=== PATIENT | male | born 1980 | race Caucasian/White ===

== ENCOUNTER 2017-11-03 13:25 | Emergency (ER) | payer OTHER ==
[2017-11-03] MEDS ORDERED: ASPIRIN 81 MG CHEWABLE TABLET ONE (13:50)
[2017-11-03 14:00] LABS: Absolute Lymphocytes (CBC) 2.3 K/uL (0.7-4.9); Absolute Monocytes 0.5 K/uL (0.1-1.3); Absolute Neutrophil 4.9 K/uL (1.8-8.0); Basophils % 0.7 % (0-1.3); Eosinophils % 1.7 % (0-4.4); Hematocrit 48.8 % (39.6-49.0); Lymphocytes % 28.9 % (15.3-44.8); MCH 28.5 pg (27.0-35.0); MCV 85.8 fL (80-100); Monocytes % 6.8 % (3.3-12.3); RBC Red Blood Cell Count 5.69 M/uL (4.33-5.43)
[2017-11-03 14:22] LABS: ALT/SGPT 48 U/L (12-78); AST/SGOT 21 U/L (15-37); Albumin 3.8 g/dL (3.4-5.0); Alkaline Phosphatase 61 U/L (45-117); BUN Blood Urea Nitrogen 15 mg/dL (7-18); Bicarbonate 27 mmol/L (21-32); Bilirubin Direct < 0.1 mg/dL (0-0.2); Bilirubin Total 0.4 mg/dL (0.2-1.0); CKMB Creatine Kinase MB 1.9 ng/mL (0.3-3.6); Creatine Phosphokinase 203 U/L (39-308); Glucose Level 171 mg/dL (74-106); Lipase 267 U/L (73-393); NT PRO-BNP 31 pg/mL (<125); Potassium 4.2 mmol/L (3.5-5.1); Protein, Total 7.1 g/dL (6.4-8.2); Sodium Level 136 mmol/L (136-145)
[2017-11-03 15:14] LABS: Protime INR 1.08
--- NOTE | 2017-11-03 15:19 | RAD REPORT ---
EXAM DESCRIPTION: RAD - Chest Single View - 11/03/2017 1:48 pm CLINICAL HISTORY: CHEST PAIN Chest pain. COMPARISON: No comparisons FINDINGS: Portable technique limits examination quality. The lungs are grossly clear. The heart is normal in size. No displaced fractures. IMPRESSION: No acute intrathoracic process suspected.
--- NOTE | 2017-11-03 15:27 | RAD REPORT ---
EXAM DESCRIPTION: CT - Head Brain Wo Cont - 11/03/2017 3:18 pm CLINICAL HISTORY: CONFUSED Drowsiness COMPARISON: No comparisons TECHNIQUE: All CT scans are performed using dose optimization technique as appropriate and may inclu de automated exposure control or mA/KV adjustment according to patient size. FINDINGS: No intracranial hemorrhage, hydrocephalus or extra-axial fluid collection.No areas of brai n edema or evidence of midline shift. The paranasal sinuses and mastoids are clear. The calvarium is intact. IMPRESSION: No acute intracranial abnormality.
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
--- NOTE | 2017-11-03 17:00 | EKG ---
Test Date: 2017-11-03 Test Time: 13:32:18 Thermocouple Tester: MARIA R MEASUREMENT RESULTS: Intervals: Rate: 74 WA: 158 QRSD: 82 QT: 374 QTc: 415 [place]: P: 35 WA: 158 QRS: 81 T: 31 INTERPRETIVE STATEMENTS: Normal sinus rhythm Low voltage QRS Borderline ECG No previous ECG available for comparison Electronically Signed On 11-03-17 17:00:26 CDT by Rojas Lloyd
[2017-11-03 17:21] VITALS: BP 138/82; O2SAT 99
--- NOTE | 2017-11-05 13:26 | HM ---
Indications : Palpitations Diary Notations : Yes Referring MD : Yon Seth MD Medications: Metformin, Lisinporil, Vittoza, Adderall Reading MD : Matt Mills MD Summary Report Test Date : 11/03/2017 4:47:10 PM Start Time : 4:47:10 PM Total Beats : [id number] Hours Analyzed : 23:25:50 Unknown Beats : 0 Scan Date : 11/05/2017 9:35:31 AM Artifact : 0:42:06 Other Beats : 0 Percent AFIB : 0.00% Rate Dependent Events Heart Rates Min : 57 BPM at 6:45:00 AM-2 Bradycardia Runs: 2 Pauses : 0 Max : 127 BPM at 4:13:00 PM-2 Longest : 4 beats at 5:12:34 AM-2 Longest : 0.0 secs Avg : 84 BPM Min rate : 47 BPM at 5:12:34 AM-2 at Ventricular Events Supraventricular Events Total Beats : 1 Couplets : 0 Total Beats : 5 Couplets : 1 Triplets : 0 Bigeminy Runs : 0 VTach Runs : 0 SVTach Runs : 0 Longest : 0 beats at Longest : 0 beats at Max Rate ; 0 BPM Max Rate : 0 BPM at Impressions and Findings Sinus rhythm with rare premature atrial complexes and premature ventricular complexes. No ventricular tachycardia or supraventricular tachycardia. No pauses. No ischemia.
== END 2017-11-03 17:14 | disposition home or self-care (01) ==
LOC: ER 13:25
DX: R00.2 Palpitations (principal); R53.1 Weakness; I10 Essential (primary) hypertension; E11.9 Type 2 diabetes mellitus without complications; Z79.4 Long term (current) use of insulin
CPT/HCPCS: 36415; 70450; 71045; 80048; 80076; 82550; 82553; 83690; 83735; 83880; 84443; 84484; 85025; 85610; 85730; 93005; 93225; 93226; 99285

== ENCOUNTER 2019-11-06 07:21 | Emergency (ER) | payer OTHER ==
--- OUTSIDE RECORDS SUMMARY | 2019-11-06 07:23 | XMS REPORT | Continuity of Care Document ---
:1980 Author Organization [facility] t Address [address] [place] [address] Dr. Loredo[address] [place] [address] Care Team Providers Name Role Phone Lyle SHIPLEY, T Attending Clinician Doctor Unassigned, Name Attending Clinician Unavailable Problems This patient has no known problems. Allergies, Adverse Reactions, Alerts This patient has no known allergies or adverse reactions. Medications This patient has no known medications. Procedures This patient has no known procedures. Encounters Start End Encounter Admission Attending Care Care Encounter Source Date/Time Date/Time Type Type Clinicians Facility Department ID 2019-07-14 2019-07-14 [facility] [place] [id number] 09:16:54 09:31:54 ne Visit [facility] [place] [id number] [place] [id number] [facility] [id number] [address] 2018-11-09 2018-11-09 Orders Doctor CATY [id number] 00:00:00 00:00:00 Only UnassignedMELVIN [id number] [place] [facility] [id number] Results This patient has no known results.
[2019-11-06] MEDS ORDERED: ONDANSETRON 4 MG/2 ML VIAL ONE (08:27)
[2019-11-06] MEDS ORDERED: MORPHINE 4 MG/ML SYR ONE ×2 (08:27→09:41)
[2019-11-06] MEDS ORDERED: KETOROLAC 30 MG/ML INJ ONE (08:28)
[2019-11-06] MEDS ORDERED: NA CHLORIDE 0.9% 1,000 ML ONE (08:28)
[2019-11-06 08:36] LABS: Basophils % 0.4 % (0-1.3); Lymphocytes % 17.7 % (15.3-44.8); MPV 9.2 fL (7.6-11.3); RBC Red Blood Cell Count 5.47 M/uL (4.33-5.43)
[2019-11-06 08:56] LABS: Albumin 3.4 g/dL (3.4-5.0); Bilirubin Total 0.4 mg/dL (0.2-1.0); Potassium 4.3 mmol/L (3.5-5.1); Protein, Total 6.7 g/dL (6.4-8.2)
--- NOTE | 2019-11-06 09:05 | EDPHYS ---
Physician Documentation [facility] Name: Serafin Cohn III Age: 39 yrs Sex: Male : 1980 Arrival Date: 11/06/2019 Time: 07:23 Bed 20 Private MD: Payam Brown B ED Physician Trevon Lyon HPI: 11/05 08:10 This 39 yrs old Male presents to ER via Wheelchair with complaints of Post tess Surgical Pain, Ankle Pain. Historical: - Allergies: 07:45 No Known Allergies; aa5 - PMHx: 07:45 Diabetes - NIDDM; Hypertension; aa5 - PSHx: 07:45 left ankle; right shoulder; aa5 - Immunization history:: Adult Immunizations unknown. - Social history:: Smoking status: Patient/guardian denies using tobacco, Stopped _ months ago 6. ROS: 08:16 Constitutional: Negative for fever, chills, and weight loss, Eyes: Negative for injury, tess pain, redness, and discharge, ENT: Negative for injury, pain, and discharge, Neck: Negative for injury, pain, and swelling, Cardiovascular: Negative for chest pain, palpitations, and edema, Respiratory: Negative for shortness of breath, cough, wheezing, and pleuritic chest pain, Abdomen/GI: Negative for abdominal pain, nausea, vomiting, diarrhea, and constipation, Back: Negative for injury and pain, : Negative for injury, bleeding, discharge, and swelling, Skin: Negative for injury, rash, and discoloration, Neuro: Negative for headache, weakness, numbness, tingling, and seizure, Psych: Negative for depression, anxiety, suicide ideation, homicidal ideation, and hallucinations, Allergy/Immunology: Negative for hives, rash, and allergies, Endocrine: Negative for neck swelling, polydipsia, polyuria, polyphagia, and marked weight changes, Hematologic/Lymphatic: Negative for swollen nodes, abnormal bleeding, and unusual bruising. 08:16 MS/extremity: Positive for decreased range of motion, pain, tenderness, of the left lateral ankle, left medial ankle and anterior aspect of left ankle. Exam: 08:16 Constitutional: This is a well developed, well nourished patient who is awake, alert, tess and in no acute distress. Head/Face: Normocephalic, atraumatic. Eyes: Pupils equal round and reactive to light, extra-ocular motions intact. Lids and lashes normal. Conjunctiva and sclera are non-icteric and not injected. Cornea within normal limits. Periorbital areas with no swelling, redness, or edema. ENT: Nares patent. No nasal discharge, no septal abnormalities noted. Tympanic membranes are normal and external auditory canals are clear. Oropharynx with no redness, swelling, or masses, exudates, or evidence of obstruction, uvula midline. Mucous membranes moist. Neck: Trachea midline, no thyromegaly or masses palpated, and no cervical lymphadenopathy. Supple, full range of motion without nuchal rigidity, or vertebral point tenderness. No Meningismus. Chest/axilla: Normal chest wall appearance and motion. Nontender with no deformity. No lesions are appreciated. Cardiovascular: Regular rate and rhythm with a normal S1 and S2. No gallops, murmurs, or rubs. Normal PMI, no JVD. No pulse deficits. Respiratory: Lungs have equal breath sounds bilaterally, clear to auscultation and percussion. No rales, rhonchi or wheezes noted. No increased work of breathing, no retractions or nasal flaring. Abdomen/GI: Soft, non-tender, with normal bowel sounds. No distension or tympany. No guarding or rebound. No evidence of tenderness throughout. Back: No spinal tenderness. No costovertebral tenderness. Full range of motion. Skin: Warm, dry with normal turgor. Normal color with no rashes, no lesions, and no evidence of cellulitis. Neuro: Awake and alert, GCS 15, oriented to person, place, time, and situation. Cranial nerves II-XII grossly intact. Motor strength 5/5 in all extremities. Sensory grossly intact. Cerebellar exam normal. Normal gait. Psych: Awake, alert, with orientation to person, place and time. Behavior, mood, and affect are within normal limits. 08:16 Musculoskeletal/extremity: Circulation is intact in all extremities. Sensation intact. Compartment Syndrome exam of affected extremity: is normal. Joints: effusion, pain at rest, painful range of motion, Weight bearing: is unable to bear weight, DVT Exam: negative Homans' sign noted on exam, no appreciated bluish discoloration, no erythema, no increased warmth, pain, swelling, tenderness. Vital Signs: 07:41 BP 150 / 94; Pulse 80; Resp 18 S; Temp 98.2(O); Pulse Ox 100% on R/A; Weight 147.42 kg aa5 (R); Height 6 ft. 0 in. (182.88 cm) (R); Pain 10/10; 08:27 BP 145 / 88; Pulse 82; Resp 18 S; Pulse Ox 99% on R/A; aa5 09:25 BP 149 / 90; Pulse 80; Resp 16 S; Pulse Ox 99% on R/A; aa5 10:45 BP 138 / 85; Pulse 79; Resp 18 S; Temp 98.0(TE); Pulse Ox 98% on R/A; aa5 07:41 Body Mass Index 44.08 (147.42 kg, 182.88 cm) aa5 MDM: 07:44 Patient medically screened. [facility] 08:18 Data reviewed: vital signs, nurses notes, lab test result(s), radiologic studies, plain tess films. 08:32 Differential diagnosis: foreign body, arthritis, cellulitis. Data interpreted: Cardiac tess monitor: rate is 80 beats/min, rhythm is regular, Pulse oximetry: on room air is 100 %. Test interpretation: by ED physician or midlevel provider: plain radiologic studies. 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 ED course: REST, ELEVATE, FOLLOW UP, RETURN IF WORSE. 09:03 ED course: patient much improved, will resplint , RICE, FOLLOW UP , PT HAS PAIN MEDS, tess RETURN IF WORSENS. 11/05 08:07 Order name: CBC with Diff; Complete Time: 09:03 [facility] 11/05 08:07 Order name: Comprehensive Metabolic Panel; Complete Time: 09:03 [facility] 11/05 08:07 Order name: Ankle Left 3 View XRAY [facility] 11/05 08:10 Order name: Ice pack; Complete Time: 08:15 [facility] 11/05 08:10 Order name: Splint - Ankle: Posterior: WELL PADDED; Complete Time: 10:10 tess Administered Medications: 08:25 Drug: NS 0.9% 1000 ml Route: IV; Rate: 1 bolus; Site: right antecubital; aa5 10:40 Follow up: IV Status: Completed infusion; IV Intake: 1000ml aa5 08:25 Drug: Zofran (Ondansetron) 4 mg Route: IVP; Site: right antecubital; aa5 08:30 Follow up: Response: No adverse reaction aa5 08:25 Drug: TORadol 30 mg Route: IVP; Site: right antecubital; aa5 08:30 Follow up: Response: No adverse reaction aa5 08:27 Drug: morphine 4 mg Route: IVP; Site: right antecubital; aa5 08:30 Follow up: Response: No adverse reaction aa5 09:35 Drug: morphine 4 mg Route: IVP; Site: right antecubital; aa5 09:40 Follow up: Response: No adverse reaction aa5 10:45 Drug: [place] 10 mg-325 mg 1 tabs Route: PO; aa5 10:50 Follow up: Response: Medication administered at discharge. aa5 Disposition: 11/06/19 09:05 Discharged to Home. Impression: Pain in left ankle and joints of left foot - POST OP. - Condition is Stable. - Discharge Instructions: Joint Pain, Cryotherapy, [id number]-fw-[id number], Ankle Pain, Cryotherapy, Joint Pain, [id number]-[id number]. - Prescriptions for Motrin IB 200 mg Oral Tablet - take 2 tablet by ORAL route every 6 hours As needed as needed with food; 30 tablet. - Medication Reconciliation Form, Thank You Letter, Antibiotic Education, Prescription Opioid Use form. - Follow up: Private Physician; When: 2 - 3 days; Reason: Recheck today's complaints, Continuance of care, Re-evaluation by your physician. - Problem is new. - Symptoms have improved. Signatures: Dispatcher [employer] [facility] Trevon Lyon MD MD cha Calderon, Audri, RN RN aa5 Corrections: (The following items were deleted from the chart) 11:07 09:05 11/06/2019 09:05 Discharged to Home. Impression: Pain in left ankle and joints of aa5 left foot - POST OP. Condition is Stable. Discharge Instructions: Joint Pain, Cryotherapy, Waxd-mu-Hnzj, Ankle Pain, Cryotherapy, Joint Pain, [id number]-[id number]. Forms are Medication Reconciliation Form, Thank You Letter, Antibiotic Education, Prescription Opioid Use. Follow up: Private Physician; When: 2 - 3 days; Reason: Recheck today's complaints, Continuance of care, Re-evaluation by your physician. Problem is new. Symptoms have improved. tess
--- NOTE | 2019-11-06 09:05 | ER ---
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 Pt states he took oxycodone at 0100 today. 07:41 Coronavirus screen: Client denies travel out of the [place] in the last 14 days. At this aa5 time, the client does not indicate any symptoms associated with coronavirus-19. Ebola Screen: Patient negative for fever greater than or equal to 101.5 degrees Fahrenheit, and additional compatible Ebola Virus Disease symptoms. Initial Sepsis Screen: Does the patient meet any 2 criteria? No. Patient's initial sepsis screen is negative. Does the patient have a suspected source of infection? No. Patient's initial sepsis screen is negative. Risk Assessment: Do you want to hurt yourself or someone else? Patient reports no desire to harm self or others. Onset of symptoms was October 2019. 07:41 Method Of Arrival: Wheelchair aa 07:41 Acuity: ARLETTE 3 aa5 Historical: - Allergies: 07:45 No Known Allergies; aa5 - PMHx: 07:45 Diabetes - NIDDM; Hypertension; aa5 - PSHx: 07:45 left ankle; right shoulder; aa5 - Immunization history:: Adult Immunizations unknown. - Social history:: Smoking status: Patient/guardian denies using tobacco, Stopped _ months ago 6. Screenin:30 Abuse screen: Denies threats or abuse. Nutritional screening: No deficits noted. aa5 Tuberculosis screening: No symptoms or risk factors identified. Fall Risk Secondary diagnosis (15 points) recent left ankle surgery . IV access (20 points). Ambulatory Aid- Total Zimmer Fall Scale indicates Low Risk Score (25-44 pts). Fall prevention measures have been instituted. Side Rails Up X 2 Placed close to Nursing Station. Assessment: 07:44 General: Appears uncomfortable, Behavior is calm, cooperative. Pain: Complains of pain aa5 in left ankle Pain currently is 10 out of 10 on a pain scale. Quality of pain is described as sharp, throbbing, Is continuous, Aggravated by increased activity. Neuro: Level of Consciousness is awake, alert, obeys commands, Oriented to person, place, time, situation. Cardiovascular: Patient's skin is warm and dry. Pulses are 3+ in left dorsalis pedis artery. Respiratory: Airway is patent Respiratory effort is even, unlabored, Respiratory pattern is regular, symmetrical. GI: No signs and/or symptoms were reported involving the gastrointestinal system. : No signs and/or symptoms were reported regarding the genitourinary system. EENT: No signs and/or symptoms were reported regarding the EENT system. Derm: Skin is pink, warm \\T\\ dry. Musculoskeletal: Circulation, motion, and sensation intact. Swelling present in left ankle. 08:27 Reassessment: Patient is alert, oriented x 3, equal unlabored respirations, skin aa5 warm/dry/pink. 08:30 Reassessment: x-ray at bedside . aa5 08:30 Reassessment: Patient is alert, oriented x 3, equal unlabored respirations, skin aa5 warm/dry/pink. Patient states feeling better. 09:22 Reassessment: Pt requesting pain medication, MD was notified. . aa5 09:35 Reassessment: Patient is alert, oriented x 3, equal unlabored respirations, skin aa5 warm/dry/pink. 09:45 Reassessment: Patient is alert, oriented x 3, equal unlabored respirations, skin aa5 warm/dry/pink. Patient states symptoms have improved. 09:45 General: Appears comfortable. aa5 10:40 Reassessment: Patient is alert, oriented x 3, equal unlabored respirations, skin aa5 warm/dry/pink. Pt requesting pain medication before d/c home, was notified. . 10:55 Reassessment: Patient is alert, oriented x 3, equal unlabored respirations, skin aa5 warm/dry/pink. Vital Signs: 07:41 BP 150 / 94; Pulse 80; Resp 18 S; Temp 98.2(O); Pulse Ox 100% on R/A; Weight 147.42 kg aa5 (R); Height 6 ft. 0 in. (182.88 cm) (R); Pain 10/10; 08:27 BP 145 / 88; Pulse 82; Resp 18 S; Pulse Ox 99% on R/A; aa5 09:25 BP 149 / 90; Pulse 80; Resp 16 S; Pulse Ox 99% on R/A; aa5 10:45 BP 138 / 85; Pulse 79; Resp 18 S; Temp 98.0(TE); Pulse Ox 98% on R/A; aa5 07:41 Body Mass Index 44.08 (147.42 kg, 182.88 cm) aa5 ED Course: 07:23 Patient arrived in ED. ag5 07:23 Linnea Jackson DO is Private Physician. ag5 07:23 Payam Brown MD is Private Physician. ag5 07:24 Trevon Lyon MD is Attending Physician. [facility] [place] 07:41 Nguyen Epps, KESHA is Primary Nurse. aa5 07:41 Arm band placed on. aa5 07:41 Patient has correct armband on for positive identification. Bed in low position. Call aa5 light in reach. Side rails up X2. Pulse ox on. NIBP on. 08:05 Triage completed. aa5 08:23 Initial lab(s) drawn, by me, sent to lab. Inserted saline lock: 20 gauge in right aa5 antecubital area, using aseptic technique. Blood collected. 08:47 Ankle Left 3 View XRAY In Process Unspecified. EDMS 10:13 Orthoglass splint: Posterior short lleg splint applied on left leg. Pedal pulses jb1 present and within normal limits before and after application of splint. Capillary refill was one second before and after application fo splint. Patient tolerated well. 10:45 No provider procedures requiring assistance completed. IV discontinued, intact, aa5 bleeding controlled, No redness/swelling at site. Pressure dressing applied. Administered Medications: 08:25 Drug: NS 0.9% 1000 ml Route: IV; Rate: 1 bolus; Site: right antecubital; aa5 10:40 Follow up: IV Status: Completed infusion; IV Intake: 1000ml aa5 08:25 Drug: Zofran (Ondansetron) 4 mg Route: IVP; Site: right antecubital; aa5 08:30 Follow up: Response: No adverse reaction aa5 08:25 Drug: TORadol 30 mg Route: IVP; Site: right antecubital; aa5 08:30 Follow up: Response: No adverse reaction aa5 08:27 Drug: morphine 4 mg Route: IVP; Site: right antecubital; aa5 08:30 Follow up: Response: No adverse reaction aa5 09:35 Drug: morphine 4 mg Route: IVP; Site: right antecubital; aa5 09:40 Follow up: Response: No adverse reaction aa5 10:45 Drug: [place] 10 mg-325 mg 1 tabs Route: PO; aa5 10:50 Follow up: Response: Medication administered at discharge. aa5 Intake: 10:40 IV: 1000ml; Total: 1000ml. aa5 Outcome: 09:05 Discharge ordered by . tess 10:55 Patient left the ED. aa5 10:55 Discharged to home via wheelchair, with significant other. aa5 10:55 Condition: stable 10:55 Discharge instructions given to patient, Instructed on discharge instructions, follow aa5 up and referral plans. medication usage, Demonstrated understanding of instructions, follow-up care, medications, Prescriptions given X 1. Signatures: Dispatcher [employer] EDMS Serafin Blakely [email or web address] Trevon Lyon MD MD cha Calderon, Audri, RN RN [email or web address] Manfred Stokes 5 Corrections: (The following items were deleted from the chart) 08:07 07:41 Acuity: ARLETTE 4 aa5 aa5 11:08 11:07 Patient left the ED. aa5 aa5
--- NOTE | 2019-11-06 10:41 | RAD REPORT ---
EXAM DESCRIPTION: RAD - Ankle Left 3 View -11/06/2019 8:47 am CLINICAL HISTORY: Left ankle pain FINDINGS: No fracture or dislocation is seen. Moderate osteoarthritis. Soft tissue swelling
[2019-11-06] MEDS ORDERED: HYDROCODONE/APAP 10/325 TAB ONE (10:58)
== END 2019-11-06 11:07 | disposition home or self-care (01) ==
LOC: ER 07:21
DX: M25.572 Pain in left ankle and joints of left foot (principal); Z98.890 Other specified postprocedural states; Z87.891 Personal history of nicotine dependence
CPT/HCPCS: 96361; 85025; 36415; 80053; 73610; 96375; 96374; 99284; J7030; J2405

== ENCOUNTER 2023-07-02 21:59 | Emergency (ER) | payer BC, OTHER ==
--- OUTSIDE RECORDS SUMMARY | 2023-07-02 22:03 | XMS REPORT | Continuity of Care Document ---
Author Name Unknown Address [address] [facility] [address] [place] [address] [facility] thconnect Address [address] [facility] [address] [place] [address] Care Team Providers Care Health Professor Name Role Phone Betsy JacksonShanthiWyatt Primary Care Physician [phone] Randy Perales Attending Clinician Unavailable Tyler Borjsa Attending Clinician Unavailable Galen Alvarenga MD Attending Clinician [phone] Samira REBOLLEDO, Kiki Attending Clinician Unavailable DARLIN LAMA Attending Clinician Unavailable Only, Ang Db Test Attending Clinician UnavailDarlin Montiel Attending Clinician [phone] Osmin REBOLLEDO, Jud Attending Clinician Unavailable Moe Peterson MD Attending Clinician [phone] MOE PETERSON Attending Clinician Unavailable GALEN ALVARENGA Attending Clinician GALEN Baird Attending Clinician Wilfredo ledesma Doctor Unassigned, Intercourse Attending Clinician U Tyler Breen Admitting Clinician Unavailable Payers Payer Name Policy Type Policy Number Effective Date Expirati on Date Source [facility] 6 [id number] [facility] 6 [id number] 2020 00:00:00 [facility] A[employer] TRS CARE [id number] 2014 00:00:00 Problems Condition Name Condition Details Condition Category Status Onset Date Resolution Date Last Treatment Date Treating Clinician Comments Source No known active problems No known active problems Disease [facility] [id number] S/P gastric sleeve procedure Problem [facility] [id number] Body mass index [BMI] 33.0-33.9, adult Problem [facility] [id number] Other obesity due to excess calories Problem [facility] [id number] Type 2 diabetes mellitus with hyperglyce aaron, without long-term current use of insulin Problem [facility] [id number] Attention deficit hyperactiv ity disorder (ADHD), predominan tly inattentiv e type Problem [facility] [id number] Morbid (severe) obesity due to excess calories Problem [facility] [id number] Obstructiv e sleep apnea of adult Problem [facility] [id number] Body mass index [BMI]40.0- 44.9, adult Problem [facility] [id number] Ankle arthritis Problem [facility] [id number] HTN (hypertens ion), benign Problem [facility] [id number] Psoriasis Problem [facility] [id number] Secondary osteoarthr itis, right ankle and foot Problem [facility] Allergies, Adverse Reactions, Alerts Allergy Name Allergy Type Status Severity Reaction(s) Onset Date Inactive Date Treating Clinician Comments Source No Known Allergie s DA Active U 07-18 00:00: 00 [facility] Social History Social Habit Start Date Stop Date Quantity Comments Source History of Tobacco Use [facility] Sex Assigned At [facility] Alcohol intake 2020-06-07 00:00:00 2020-06-07 00:00:00 Current non-drinker of alcohol (finding) [facility] Tobacco use and exposure 2017-09-24 00:00:00 2017-09-24 00:00:00 Current user [facility] Smoking Status Start Date Stop Date Source Former Smoker 2023-05-09 00:00:00 2023-05-09 00:00:00 [facility] Never smoker [facility] Medications Ordered Medication Name Filled Medication Name Start Date Stop Date Current Medication? Ordering Clinician Indication Dosage Frequency Signature (SIG) Comments Components Source Adderall 20 MG Adderall 20 MG 2023-0 3-28 00:00: 00 No 1{table t} BID Adderall 20 MG Adderall 20 MG Adderall 20 MG 2023-0 2-29 00:00: 00 No 1{table t} BID Adderall 20 MG Adderall 20 MG Adderall 20 MG 4-0 2-03 00:00: 00 No 1{table t} BID Adderall 20 MG Adderall 20 MG Adderall 20 MG 2023-0 2-03 00:00: 00 No 1{table t} BID Adderall 20 MG Adderall 20 MG Adderall 20 MG 4-0 2-03 00:00: 00 No 1{table t} BID Adderall 20 MG Adderall 20 MG Adderall 20 MG 4-0 2-03 00:00: 00 No 1{table t} BID Adderall 20 MG Adderall 20 MG Adderall 20 MG 4-0 2-02 00:00: 00 No 1{table t} BID Adderall 20 MG Adderall 20 MG Adderall 20 MG 4-0 1-04 00:00: 00 No 1{table t} BID Adderall 20 MG Adderall 20 MG Adderall 20 MG 4-0 1-04 00:00: 00 No 1{table t} BID Adderall 20 MG Adderall 20 MG Adderall 20 MG 03-20 00:00: 00 No 1{table t} BID Adderall 20 MG Adderall 20 MG Adderall 20 MG 2022-03 00:00: 00 No 1{table t} BID Adderall 20 MG Adderall 20 MG Adderall 20 MG 2022-03 00:00: 00 No 1{table t} BID Adderall 20 MG Adderall 20 MG Adderall 20 MG 2022-03 00:00: 00 No 1{table t} BID Adderall 20 MG Adderall 20 MG Adderall 20 MG 2022-03 00:00: 00 No 1{table t} BID Adderall 20 MG Adderall 20 MG Adderall 20 MG 2022-03 00:00: 00 No 1{table t} BID Adderall 20 MG Adderall 20 MG Adderall 20 MG 2022-03 00:00: 00 No 1{table t} BID Adderall 20 MG Adderall 20 MG Adderall 20 MG 2022-03 00:00: 00 No 1{table t} BID Adderall 20 MG Adderall 20 MG Adderall 20 MG 2022-03 00:00: 00 No 1{table t} BID Adderall 20 MG Adderall 20 MG Adderall 20 MG 2022-03 00:00: 00 No 1{table t} BID Adderall 20 MG Adderall 20 MG Adderall 20 MG 2022-03 00:00: 00 No 1{table t} BID Adderall 20 MG Adderall 20 MG Adderall 20 MG 2022-03 00:00: 00 No 1{table t} BID Adderall 20 MG Adderall 20 MG Adderall 20 MG 2022-03 00:00: 00 No 1{table t} BID Adderall 20 MG Adderall 20 MG Adderall 20 MG 2022-03 00:00: 00 No 1{table t} BID Adderall 20 MG Adderall 20 MG Adderall 20 MG 2022-03 00:00: 00 No 1{table t} BID Adderall 20 MG Adderall 20 MG Adderall 20 MG 2022-03 00:00: 00 No 1{table t} BID Adderall 20 MG Adderall 20 MG Adderall 20 MG 2022-03 00:00: 00 No 1{table t} BID Adderall 20 MG Adderall 20 MG Adderall 20 MG 2022-03 00:00: 00 No 1{table t} BID Adderall 20 MG Adderall 20 MG Adderall 20 MG 2022-03 00:00: 00 No 1{table t} BID Adderall 20 MG Adderall 20 MG Adderall 20 MG 2022-03 00:00: 00 No 1{table t} BID Adderall 20 MG Adderall 20 MG Adderall 20 MG 2022-03 00:00: 00 No 1{table t} BID Adderall 20 MG Adderall 20 MG Adderall 20 MG 2022-03 00:00: 00 No 1{table t} BID Adderall 20 MG Adderall 20 MG Adderall 20 MG 2022-03 00:00: 00 No 1{table t} BID Adderall 20 MG Adderall 20 MG Adderall 20 MG 2022-03 00:00: 00 No 1{table t} BID Adderall 20 MG Adderall 20 MG Adderall 20 MG 2022-03 00:00: 00 No 1{table t} BID Adderall 20 MG Adderall 20 MG Adderall 20 MG 2022-03 00:00: 00 No 1{table t} BID Adderall 20 MG Adderall 20 MG Adderall 20 MG 2022-03 00:00: 00 No 1{table t} BID Adderall 20 MG Adderall 20 MG Adderall 20 MG 2022-03 00:00: 00 No 1{table t} BID Adderall 20 MG Adderall 20 MG Adderall 20 MG 2022-03 00:00: 00 No 1{table t} BID Adderall 20 MG Adderall 20 MG Adderall 20 MG 2022-03 0 00:00: 00 No 1{table t} BID Adderall 20 MG Adderall 20 MG Adderall 20 MG 2022-1 0-27 00:00: 00 No 1{table t} BID Adderall 20 MG Adderall 20 MG Adderall 20 MG 1 0-27 00:00: 00 No 1{table t} BID Adderall 20 MG Adderall 20 MG Adderall 20 MG 1 0-27 00:00: 00 No 1{table t} BID Adderall 20 MG Adderall 20 MG Adderall 20 MG 2022-0 5- 00:00: 00 No 1{table t} BID Adderall 20 MG Adderall XR 30 MG Adderall XR 30 MG 2022-0 5- 00:00: 00 No QD Adderall XR 30 MG Adderall 20 MG Adderall 20 MG 2022-0 4-20 00:00: 00 No 1{table t} BID Adderall 20 MG Adderall XR 30 MG Adderall XR 30 MG 0 1-18 00:00: 00 No 1{capsu le_in_t he_morn ing} QD Adderall XR 30 MG Adderall XR 30 MG Adderall XR 30 MG 2021-03 2-20 00:00: 00 No 1{capsu le_in_t he_morn ing} QD Adderall XR 30 MG Adderall XR 30 MG Adderall XR 30 MG 2021-03 2-20 00:00: 00 No 1{capsu le_in_t he_morn ing} QD Adderall XR 30 MG Adderall 20 MG Adderall 20 MG 2021-03 1-14 00:00: 00 No 1{table t} BID Adderall 20 MG Adderall 20 MG Adderall 20 MG 2021-03 1-14 00:00: 00 No 1{table t} BID Adderall 20 MG Adderall 20 MG Adderall 20 MG 2021-03 1-14 00:00: 00 No 1{table t} BID Adderall 20 MG Adderall 20 MG Adderall 20 MG 2021-03 0-18 00:00: 00 No 1{table t} BID Adderall 20 MG Adderall 20 MG Adderall 20 MG 2022-1 0-18 00:00: 00 No 1{table t} BID Adderall 20 MG Adderall 20 MG Adderall 20 MG 2021-1 0-14 00:00: 00 No 1{table t} BID Adderall 20 MG Adderall 20 MG Adderall 20 MG 2-0 9-17 00:00: 00 No 1{table t} BID Adderall 20 MG Adderall 20 MG Adderall 20 MG 2021-0 8-18 00:00: 00 No 1{table t} BID Adderall 20 MG Adderall 20 MG Adderall 20 MG 2021-0 6-25 00:00: 00 No 1{table t} BID Adderall 20 MG Adderall 20 MG Adderall 20 MG 2021-0 5-26 00:00: 00 No 1{table t} BID Adderall 20 MG Adderall 20 MG Adderall 20 MG 2021-0 4-11 00:00: 00 No 1{table t} BID Adderall 20 MG Adderall 20 MG Adderall 20 MG 2021-0 2-20 00:00: 00 No 1{table t} BID Adderall 20 MG Betamethaso ne Dipropionat e 0.05 % Betamethaso ne Dipropionat e 0.05 % 2021-0 2-11 00:00: 00 03-11 00:00 :00 No BID Betamethas one Dipropiona te 0.05 % Adderall 20 MG Adderall 20 MG 2021-0 1-21 00:00: 00 No 1{table t} BID Adderall 20 MG Halobetasol Propionate 0.01 % Halobetasol Propionate 0.01 % 2021-0 1-21 00:00: 00 -20 00:00 :00 No 1{appli cation} QD Halobetaso l Propionate 0.01 % Adderall 20 MG Adderall 20 MG 2021-0 1-10 00:00: 00 No 1{table t} BID Adderall 20 MG Adderall 20 MG Adderall 20 MG 2020-1 2-03 00:00: 00 No 1{table t} BID Adderall 20 MG Adderall 20 MG Adderall 20 MG 2020-03 0 00:00: 00 No 1{table t} BID Adderall 20 MG Adderall 20 MG Adderall 20 MG 2020-03 0- 00:00: 00 No 1{table t} BID Adderall 20 MG ProAir HFA 108 (90 Base) MCG/ACT ProAir HFA 108 (90 Base) MCG/ACT 2020-03 0- 00:00: 00 No 2{puffs _as_nee ded} ProAir HFA 108 (90 Base) MCG/ACT ProAir HFA 108 (90 Base) MCG/ACT ProAir HFA 108 (90 Base) MCG/ACT 2020-03 0- 00:00: 00 No 2{puffs _as_nee ded} ProAir HFA 108 (90 Base) MCG/ACT Adderall 20 MG Adderall 20 MG 11-08 00:00: 00 No 1{table t} BID Adderall 20 MG Adderall 20 MG Adderall 20 MG 10-09 00:00: 00 No 1{table t} BID Adderall 20 MG Neomycin-Po lymyxin-HC 3.5-31309-8 Neomycin-Po lymyxin-HC 3.5-98900-3 10-02 00:00: 00 No 4{drops _into_a ffected _ear} TID Neomycin-P olymyxin-H C 3.5-28713- 1 Neomycin-Po lymyxin-HC 3.5-37327-8 Neomycin-Po lymyxin-HC 3.5-32077-8 10-02 00:00: 00 No 4{drops _into_a ffected _ear} TID Neomycin-P olymyxin-H C 3.5-69487- 1 dextroamphe tamine-amph etamine (ADDERALL) 30 mg tablet 11-05 10:04: 10 Yes 30mg Take 30 mg by mouth daily. [facility] metFORMIN 1,000 mg tablet 11-05 10:04: 10 Yes 1000mg Take 1,000 mg by mouth 2 (two) times daily with meals. [facility] lisinopril 20 mg tablet 11-05 10:04: 10 Yes 20mg Take 20 mg by mouth daily. [facility] liraglutide (VICTOZA 3-MEGAN SC) 2017-0 11-05 10:04: 10 Yes inject under the skin. [facility] Candesartan Cilexetil 32 MG Candesartan Cilexetil 32 MG No 1{table t} BID Candesarta n Cilexetil 32 MG Montelukast Sodium 10 MG Montelukast Sodium 10 MG No 1{table t} QD Montelukas t Sodium 10 MG Meloxicam 15 MG Meloxicam 15 MG No Meloxicam 15 MG Benzonatate 200 MG Benzonatate 200 MG No 1{capsu le} TID Benzonatat e 200 MG Azithromyci n 250 MG Azithromyci n 250 MG No QD Azithromyc in 250 MG Duobrii 0.01-0.045 % Duobrii 0.01-0.045 % No Duobrii 0.01-0.045 % Trulicity 1.5 MG/0.5ML Trulicity 1.5 MG/0.5ML No Trulicity 1.5 MG/0.5ML Synjardy 12.5-1000 MG Synjardy 12.5-1000 MG No Synjardy 12.5-1000 MG Synjardy 12.5-1000 MG Synjardy 12.5-1000 MG No Synjardy 12.5-1000 MG Trulicity 1.5 MG/0.5ML Trulicity 1.5 MG/0.5ML No Trulicity 1.5 MG/0.5ML Duobrii 0.01-0.045 % Duobrii 0.01-0.045 % No Duobrii 0.01-0.045 % Candesartan Cilexetil 32 MG Candesartan Cilexetil 32 MG No Candesarta n Cilexetil 32 MG Meloxicam 15 MG Meloxicam 15 MG No 1{table t} Meloxicam 15 MG Azithromyci n 250 MG Azithromyci n 250 MG No QD Azithromyc in 250 MG Benzonatate 200 MG Benzonatate 200 MG No 1{capsu le} TID Benzonatat e 200 MG Montelukast Sodium 10 MG Montelukast Sodium 10 MG No 1{table t} QD Montelukas t Sodium 10 MG Tazarotene 0.1 % Tazarotene 0.1 % No 1{appli cation} QD Tazarotene 0.1 % Azithromyci n 250 MG Azithromyci n 250 MG No QD Azithromyc in 250 MG Betamethaso ne Dipropionat e 0.05 % Betamethaso ne Dipropionat e 0.05 % No Betamethas one Dipropiona te 0.05 % Trulicity 1.5 MG/0.5ML Trulicity 1.5 MG/0.5ML No Trulicity 1.5 MG/0.5ML Meloxicam 15 MG Meloxicam 15 MG No 1{table t} Meloxicam 15 MG Candesartan Cilexetil 32 MG Candesartan Cilexetil 32 MG No 1{table t} BID Candesarta n Cilexetil 32 MG Tazarotene 0.1 % Tazarotene 0.1 % No 1{appli cation} QD Tazarotene 0.1 % Candesartan Cilexetil 16 MG Candesartan Cilexetil 16 MG No 1{table t} QD Candesarta n Cilexetil 16 MG Meloxicam 15 MG Meloxicam 15 MG No 1{table t} Meloxicam 15 MG Candesartan Cilexetil 8 MG Candesartan Cilexetil 8 MG No 1{table t} QD Candesarta n Cilexetil 8 MG Tazarotene 0.1 % Tazarotene 0.1 % No 1{appli cation} QD Tazarotene 0.1 % Betamethaso ne Dipropionat e 0.05 % Betamethaso ne Dipropionat e 0.05 % No Betamethas one Dipropiona te 0.05 % Meloxicam 15 MG Meloxicam 15 MG No 1{table t} Meloxicam 15 MG Candesartan Cilexetil 8 MG Candesartan Cilexetil 8 MG No 1{table t} QD Candesarta n Cilexetil 8 MG Betamethaso ne Dipropionat e 0.05 % Betamethaso ne Dipropionat e 0.05 % No Betamethas one Dipropiona te 0.05 % Tazarotene 0.1 % Tazarotene 0.1 % No 1{appli cation} QD Tazarotene 0.1 % Meloxicam 15 MG Meloxicam 15 MG No Meloxicam 15 MG Tazarotene 0.1 % Tazarotene 0.1 % No 1{appli cation} QD Tazarotene 0.1 % Betamethaso ne Dipropionat e 0.05 % Betamethaso ne Dipropionat e 0.05 % No Betamethas one Dipropiona te 0.05 % Candesartan Cilexetil 8 MG Candesartan Cilexetil 8 MG No 1{table t} QD Candesarta n Cilexetil 8 MG Adderall 20 MG Adderall 20 MG No 1{table t} BID Adderall 20 MG Tazarotene 0.1 % Tazarotene 0.1 % No 1{appli cation} QD Tazarotene 0.1 % Candesartan Cilexetil 8 MG Candesartan Cilexetil 8 MG No 1{table t} QD Candesarta n Cilexetil 8 MG Meloxicam 15 MG Meloxicam 15 MG No Meloxicam 15 MG Betamethaso ne Dipropionat e 0.05 % Betamethaso ne Dipropionat e 0.05 % No Betamethas one Dipropiona te 0.05 % Adderall 20 MG Adderall 20 MG No 1{table t} BID Adderall 20 MG Tazarotene 0.1 % Tazarotene 0.1 % No 1{appli cation} QD Tazarotene 0.1 % Betamethaso ne Dipropionat e 0.05 % Betamethaso ne Dipropionat e 0.05 % No Betamethas one Dipropiona te 0.05 % Meloxicam 15 MG Meloxicam 15 MG No 1{table t} Meloxicam 15 MG Candesartan Cilexetil 8 MG Candesartan Cilexetil 8 MG No 1{table t} QD Candesarta n Cilexetil 8 MG Adderall 20 MG Adderall 20 MG No 1{table t} BID Adderall 20 MG Tazarotene 0.1 % Tazarotene 0.1 % No 1{appli cation} QD Tazarotene 0.1 % Betamethaso ne Dipropionat e 0.05 % Betamethaso ne Dipropionat e 0.05 % No Betamethas one Dipropiona te 0.05 % Meloxicam 15 MG Meloxicam 15 MG No 1{table t} Meloxicam 15 MG Candesartan Cilexetil 8 MG Candesartan Cilexetil 8 MG No 1{table t} QD Candesarta n Cilexetil 8 MG Adderall 20 MG Adderall 20 MG No 1{table t} BID Adderall 20 MG Tazarotene 0.1 % Tazarotene 0.1 % No 1{appli cation} QD Tazarotene 0.1 % Betamethaso ne Dipropionat e 0.05 % Betamethaso ne Dipropionat e 0.05 % No Betamethas one Dipropiona te 0.05 % Meloxicam 15 MG Meloxicam 15 MG No Meloxicam 15 MG Candesartan Cilexetil 8 MG Candesartan Cilexetil 8 MG No 1{table t} QD Candesarta n Cilexetil 8 MG Meloxicam 15 MG Meloxicam 15 MG No 1{table t} Meloxicam 15 MG Tazarotene 0.1 % Tazarotene 0.1 % No 1{appli cation} QD Tazarotene 0.1 % Candesartan Cilexetil 8 MG Candesartan Cilexetil 8 MG No 1{table t} QD Candesarta n Cilexetil 8 MG Tazarotene 0.1 % Tazarotene 0.1 % No 1{appli cation} QD Tazarotene 0.1 % Meloxicam 15 MG Meloxicam 15 MG No 1{table t} Meloxicam 15 MG Tazarotene 0.1 % Tazarotene 0.1 % No 1{appli cation} QD Tazarotene 0.1 % Meloxicam 15 MG Meloxicam 15 MG No 1{table t} Meloxicam 15 MG Tazarotene 0.1 % Tazarotene 0.1 % No 1{appli cation} QD Tazarotene 0.1 % Meloxicam 15 MG Meloxicam 15 MG No 1{table t} Meloxicam 15 MG Tazarotene 0.1 % Tazarotene 0.1 % No 1{appli cation} QD Tazarotene 0.1 % Meloxicam 15 MG Meloxicam 15 MG No 1{table t} Meloxicam 15 MG Tazarotene 0.1 % Tazarotene 0.1 % No 1{appli cation} QD Tazarotene 0.1 % Meloxicam 15 MG Meloxicam 15 MG No 1{table t} Meloxicam 15 MG Tazarotene 0.1 % Tazarotene 0.1 % No 1{appli cation} QD Tazarotene 0.1 % Meloxicam 15 MG Meloxicam 15 MG No 1{table t} Meloxicam 15 MG Tazarotene 0.1 % Tazarotene 0.1 % No 1{appli cation} QD Tazarotene 0.1 % Meloxicam 15 MG Meloxicam 15 MG No 1{table t} Meloxicam 15 MG Tazarotene 0.1 % Tazarotene 0.1 % No 1{appli cation} QD Tazarotene 0.1 % Meloxicam 15 MG Meloxicam 15 MG No 1{table t} Meloxicam 15 MG Tazarotene 0.1 % Tazarotene 0.1 % No 1{appli cation} QD Tazarotene 0.1 % Meloxicam 15 MG Meloxicam 15 MG No 1{table t} Meloxicam 15 MG Tazarotene 0.1 % Tazarotene 0.1 % No 1{appli cation} QD Tazarotene 0.1 % Meloxicam 15 MG Meloxicam 15 MG No 1{table t} Meloxicam 15 MG Tazarotene 0.1 % Tazarotene 0.1 % No 1{appli cation} QD Tazarotene 0.1 % Meloxicam 15 MG Meloxicam 15 MG No 1{table t} Meloxicam 15 MG Tazarotene 0.1 % Tazarotene 0.1 % No 1{appli cation} QD Tazarotene 0.1 % Meloxicam 15 MG Meloxicam 15 MG No 1{table t} Meloxicam 15 MG Tazarotene 0.1 % Tazarotene 0.1 % No 1{appli cation} QD Tazarotene 0.1 % Meloxicam 15 MG Meloxicam 15 MG No 1{table t} Meloxicam 15 MG Tazarotene 0.1 % Tazarotene 0.1 % No 1{appli cation} QD Tazarotene 0.1 % Meloxicam 15 MG Meloxicam 15 MG No 1{table t} Meloxicam 15 MG Tazarotene 0.1 % Tazarotene 0.1 % No 1{appli cation} QD Tazarotene 0.1 % Meloxicam 15 MG Meloxicam 15 MG No 1{table t} Meloxicam 15 MG Tazarotene 0.1 % Tazarotene 0.1 % No 1{appli cation} QD Tazarotene 0.1 % Meloxicam 15 MG Meloxicam 15 MG No 1{table t} Meloxicam 15 MG Tazarotene 0.1 % Tazarotene 0.1 % No 1{appli cation} QD Tazarotene 0.1 % Meloxicam 15 MG Meloxicam 15 MG No 1{table t} Meloxicam 15 MG Tazarotene 0.1 % Tazarotene 0.1 % No 1{appli cation} QD Tazarotene 0.1 % Meloxicam 15 MG Meloxicam 15 MG No 1{table t} Meloxicam 15 MG Tazarotene 0.1 % Tazarotene 0.1 % No 1{appli cation} QD Tazarotene 0.1 % Meloxicam 15 MG Meloxicam 15 MG No 1{table t} Meloxicam 15 MG Tazarotene 0.1 % Tazarotene 0.1 % No 1{appli cation} QD Tazarotene 0.1 % Meloxicam 15 MG Meloxicam 15 MG No 1{table t} Meloxicam 15 MG Meloxicam 15 MG Meloxicam 15 MG No 1{table t} Meloxicam 15 MG Tazarotene 0.1 % Tazarotene 0.1 % No 1{appli cation} QD Tazarotene 0.1 % Vital Signs Vital Name Observation Time Observation Value Comments S ource height 2023-05-09 11:30:00 73.5 [in_i] Comm on [facility] weight 2023-05-09 11:30:00 225 [lb_av] Comm on [facility] bmi 2023-05-09 11:30:00 29.28 kg/m2 Comm on [facility] blood pressure systolic 2023-05-09 11:30:00 135 mm[Hg] [facility] blood [facility] diastolic 2023-05-09 11:30:00 73 mm[Hg] [facility] height 2023-03-20 13:30:00 73.5 [in_i] Comm on [facility] weight 2023-03-20 13:30:00 230 [lb_av] Comm on [facility] bmi 2023-03-20 13:30:00 29.93 kg/m2 Comm on [facility] height 2023-01-01 11:50:00 73.5 [in_i] Comm on [facility] weight 2023-01-01 11:50:00 220 [lb_av] Comm on [facility] bmi 2023-01-01 11:50:00 28.63 kg/m2 Comm on [facility] blood pressure systolic 2023-01-01 11:50:00 131 mm[Hg] Common [facility] blood pressure diastolic 2023-01-01 11:50:00 70 mm[Hg] [facility] height 2022-11-07 14:00:00 73.5 [in_i] Comm on [facility] weight 2022-11-07 14:00:00 216.8 [lb_av] Co mmon [facility] temperature 2022-11-07 14:00:00 97.6 [degF] Com mon [facility] bmi 2022-11-07 14:00:00 28.21 kg/m2 Comm on [facility] oximetry 2022-11-07 14:00:00 98 % Commo n [facility] respiratory rate 2022-11-07 14:00:00 16 /min Common [facility] blood pressure systolic 2022-11-07 14:00:00 134 mm[Hg] [facility] blood pressure diastolic 2022-11-07 14:00:00 72 mm[Hg] [facility] height 2022-09-02 11:30:00 73.5 [in_i] Comm on [facility] weight 2022-09-02 11:30:00 212 [lb_av] Comm on [facility] temperature 2022-09-02 11:30:00 97.7 [degF] Com mon [facility] bmi 2022-09-02 11:30:00 27.59 kg/m2 Comm on [facility] blood pressure systolic 2022-09-02 11:30:00 120 mm[Hg] [facility] blood pressure diastolic 2022-09-02 11:30:00 80 mm[Hg] [facility] height 2022-07-04 08:00:00 73.5 [in_i] Comm on [facility] weight 2022-07-04 08:00:00 217 [lb_av] Comm on [facility] bmi 2022-07-04 08:00:00 28.24 kg/m2 Comm on [facility] blood pressure systolic 2022-07-04 08:00:00 123 mm[Hg] [facility] blood pressure diastolic 2022-07-04 08:00:00 67 mm[Hg] [facility] height 2022-05-02 11:10:00 73.5 [in_i] Comm on [facility] weight 2022-05-02 11:10:00 225 [lb_av] Comm on [facility] bmi 2022-05-02 11:10:00 29.28 kg/m2 Comm on [facility] blood pressure systolic 2022-05-02 11:10:00 120 mm[Hg] [facility] blood pressure diastolic 2022-05-02 11:10:00 80 mm[Hg] [facility] height 2022-02-28 08:10:00 73.5 [in_i] Comm on [facility] weight 2022-02-28 08:10:00 230 [lb_av] Comm on [facility] temperature 2022-02-28 08:10:00 98.3 [degF] Com mon [facility] bmi 2022-02-28 08:10:00 29.93 kg/m2 Comm on [facility] blood pressure systolic 2022-02-28 08:10:00 125 mm[Hg] [facility] blood pressure diastolic 2022-02-28 08:10:00 72 mm[Hg] [facility] height 2021-12-27 09:50:00 73.5 [in_i] Comm on [facility] weight 2021-12-27 09:50:00 245 [lb_av] Comm on [facility] temperature 2021-12-27 09:50:00 98 [degF] Comm on [facility] bmi 2021-12-27 09:50:00 31.88 kg/m2 Comm on [facility] blood pressure systolic 2021-12-27 09:50:00 120 mm[Hg] [facility] blood pressure diastolic 2021-12-27 09:50:00 76 mm[Hg] [facility] height 2021-11-01 08:10:00 73.5 [in_i] Comm on [facility] weight 2021-11-01 08:10:00 259 [lb_av] Comm on [facility] bmi 2021-11-01 08:10:00 33.7 kg/m2 Commo n [facility] oximetry 2021-11-01 08:10:00 98 % Commo [facility] respiratory rate 2021-11-01 08:10:00 16 /min Common [facility] blood pressure systolic 2021-11-01 08:10:00 121 mm[Hg] [facility] blood pressure diastolic 2021-11-01 08:10:00 80 mm[Hg] [facility] height 2021-08-09 11:10:00 73.5 [in_i] [facility] on [facility] weight 2021-08-09 11:10:00 288 [lb_av] [facility] on [facility] temperature 2021-08-09 11:10:00 98 [degF] Comm on [facility] bmi 2021-08-09 11:10:00 37.48 kg/m2 Comm on [facility] blood pressure systolic 2021-08-09 11:10:00 130 mm[Hg] [facility] blood pressure diastolic 2021-08-09 11:10:00 76 mm[Hg] [facility] height 2021-04-06 11:40:00 73.5 [in_i] [facility] on [facility] weight 2021-04-06 11:40:00 315 [lb_av] [facility] on [facility] temperature 2021-04-06 11:40:00 97.4 [degF] [facility] [facility] 2021-04-06 11:40:00 40.99 kg/m2 Comm on [facility] blood pressure systolic 2021-04-06 11:40:00 132 mm[Hg] [facility] blood pressure diastolic 2021-04-06 11:40:00 76 mm[Hg] [facility] height 2021-02-16 11:30:00 73.5 [in_i] Comm on [facility] weight 2021-02-16 11:30:00 315 [lb_av] Comm on [facility] temperature 2021-02-16 11:30:00 98 [degF] Comm on [facility] bmi 2021-02-16 11:30:00 40.99 kg/m2 Comm on [facility] blood pressure systolic 2021-02-16 11:30:00 130 mm[Hg] [facility] blood pressure diastolic 2021-02-16 11:30:00 70 mm[Hg] [facility] height 2021-01-12 08:50:00 73.5 [in_i] Comm on [facility] weight 2021-01-12 08:50:00 315.8 [lb_av] Co mmon [facility] temperature 2021-01-12 08:50:00 97.3 [degF] Com [facility] bmi 2021-01-12 08:50:00 41.1 kg/m2 Commo n [facility] oximetry 2021-01-12 08:50:00 100 % Commo n [facility] respiratory rate 2021-01-12 08:50:00 18 /min [facility] blood pressure systolic 2021-01-12 08:50:00 132 mm[Hg] [facility] blood pressure diastolic 2021-01-12 08:50:00 81 mm[Hg] [facility] height 2020-12-15 09:30:00 73.5 [in_i] Comm on [facility] weight 2020-12-15 09:30:00 315 [lb_av] Comm on [facility] temperature 2020-12-15 09:30:00 97.8 [degF] Com [facility] bmi 2020-12-15 09:30:00 40.99 kg/m2 Comm on [facility] Procedures Procedure Date / Time Performed Performing Clinicia n Source [id number] 2021-07-19 00:00:00 LETITIA.Mekhi [facility] [id number] 2021-07-19 00:00:00 MARRO.02 [facility] [id number] 2021-07-19 00:00:00 MARRO.02 [facility] Encounters Start Date/Time End Date/Time Encounter Type Admission Type Attending [facility] Care Facility Care Department Encounter ID Source 2022-02-26 09:20:01 Outpatient Perales, Randy STLC STLMLC [id number] [facility] 2021-12-24 14:06:01 Outpatient Perales, Randy STLMLC STLMLC [id number] [facility] 2021-10-31 11:09:01 Outpatient Perales, Randy STLC STLMLC [id number] [facility] 2021-08-03 10:12:23 Outpatient Perales, Randy STLC STLMLC [id number] [facility] 2021-06-20 09:03:02 Outpatient Perales, Randy STLC STLMLC [id number] [facility] 2021-05-17 12:18:01 Outpatient Perales, Randy STLMLC STLMLC [id number] [facility] 2021-04-11 14:38:26 Outpatient Perales, Randy STLC STLMLC [id number] [facility] 2021-04-11 13:58:48 Outpatient Perales, Randy STLMLC STLMLC [id number] [facility] 2021-04-11 13:55:18 Outpatient Perales, Randy STLMLC STLMLC [id number] [facility] 2021-04-11 12:45:11 Outpatient Perales, Randy STLMLC STLMLC [id number] [facility] 2021-04-11 12:44:50 Outpatient Perales, Randy STLMLC STLMLC [id number] [facility] 2021-04-11 12:37:55 Outpatient Perales, Randy STLMLC STLMLC [id number] [facility] 2021-04-11 12:36:27 Outpatient Perales, Randy STLMLC STLMLC [id number] [facility] 2021-04-11 12:08:58 Outpatient Perales, Randy STLC STL[facility]C [id number] [facility] 2021-04-11 11:54:46 Outpatient Perales, Randy STLC STLMLC [id number] [facility] 2023-05-09 00:00:00 2023-05-09 00:00:00 OFFICE VISIT ESTAB PT LEVEL 4 STLMLC STLMLC [id number] [facility] 2023-04-17 00:00:00 2023-04-17 00:00:00 (WEB) STLMLC STLMLC [id number] [facility] 2023-03-20 00:00:00 2023-03-20 00:00:00 OFFICE VISIT ESTAB PT LEVEL 4 STLMLC STLMLC [id number] [facility] 2023-03-19 00:00:00 2023-03-19 00:00:00 (TEL) STLMLC STLMLC [id number] [facility] 2023-01-01 00:00:00 2023-01-01 00:00:00 OFFICE VISIT ESTAB PT LEVEL 3 STLMLC STLMLC [id number] [facility] 2022-12-12 00:00:00 2022-12-12 00:00:00 (WEB) STLMLC STLMLC [id number] [facility] 2022-11-11 00:00:00 2022-11-11 00:00:00 (TEL) STLMLC STLMLC [id number] [facility] 2022-11-07 00:00:00 2022-11-07 00:00:00 PREV VISIT EST AGE 40-64 STLMLC STLMLC [id number] [facility] 2022-10-08 00:00:00 2022-10-08 00:00:00 (WEB) STLMLC STLMLC [id number] [facility] 2022-09-09 00:00:00 2022-09-09 00:00:00 (WEB) STLMLC STLMLC [id number] [facility] 2022-09-03 00:00:00 2022-09-03 00:00:00 (WEB) STLMLC STLMLC [id number] [facility] 2022-09-02 00:00:00 2022-09-02 00:00:00 OFFICE VISIT ESTAB PT LEVEL 4 STLMLC STLMLC [id number] [facility] 2022-08-29 00:00:00 2022-08-29 00:00:00 (TEL) STLMLC STLMLC [id number] [facility] 2022-08-09 00:00:00 2022-08-09 00:00:00 (WEB) STLMLC STLMLC [id number] [facility] 2022-08-09 00:00:00 2022-08-09 00:00:00 (WEB) STLMLC STLMLC [id number] [facility] 2022-07-08 00:00:00 2022-07-08 00:00:00 (WEB) STLMLC STLMLC [id number] [facility] 2022-07-04 00:00:00 2022-07-04 00:00:00 OFFICE VISIT ESTAB PT LEVEL 4 STLMLC STLMLC [id number] [facility] 2022-06-07 00:00:00 2022-06-07 00:00:00 (WEB) STLMLC STLMLC [id number] [facility] 2022-05-07 00:00:00 2022-05-07 00:00:00 (WEB) STLMLC STLMLC [id number] [facility] 2022-05-02 00:00:2022-05-02 00:00:00 OFFICE VISIT ESTAB PT LEVEL 4 STLMLC STLMLC [id number] [facility] 2022-05-02 00:00:00 2022-05-02 00:00:00 (WEB) STLMLC STLMLC [id number] [facility] 2022-04-03 00:00:00 2022-04-03 00:00:00 (WEB) STLMLC STLMLC [id number] [facility] 2022-03-05 00:00:00 2022-03-05 00:00:00 (WEB) STLMLC STLMLC [id number] [facility] 2022-03-05 00:00:00 2022-03-05 00:00:00 (WEB) STLMLC STLMLC [id number] [facility] 2022-02-28 00:00:00 2022-02-28 00:00:00 OFFICE VISIT EST PT LEVEL 3 STLMLC STLMLC [id number] [facility] 2022-02-11 00:00:00 2022-02-11 00:00:00 (TEL) STLMLC STLMLC [id number] [facility] 2022-01-01 00:00:00 2022-01-01 00:00:00 (TEL) STLMLC STLMLC [id number] [facility] 2021-12-27 00:00:00 2021-12-27 00:00:00 OFFICE VISIT ESTAB PT LEVEL 4 STLMLC STLMLC [id number] [facility] 2021-11-01 00:00:00 2021-11-01 00:00:00 PREV VISIT EST AGE 40-64 STLMLC STLMLC [id number] [facility] 2021-10-08 00:00:00 2021-10-08 00:00:00 (TEL) STLMLC STLMLC [id number] [facility] 2021-08-09 00:00:00 2021-08-09 00:00:00 OFFICE VISIT ESTAB PT LEVEL 4 STLMLC STLMLC [id number] [facility] 2021-07-19 05:28:00 2021-07-20 11:25:00 Inpatient Tyler Villagomez [facility].01 [id number] 49 [facility] 2021-06-25 00:00:00 2021-06-25 00:00:00 (TEL) STLMLC STLMLC [id number] [facility] 2021-06-15 00:00:00 2021-06-15 00:00:00 (TEL) STLMLC STLMLC [id number] [facility] 2021-06-13 09:00:00 2021-06-13 09:20:00 [facility] [id number] [facility] 2021-04-25 00:00:00 2021-04-25 00:00:00 (TEL) STLMLC STLMLC [id number] [facility] 2021-04-06 00:00:00 2021-04-06 00:00:00 OFFICE VISIT ESTAB PT LEVEL 4 STLMLC STLMLC [id number] [facility] 2021-03-26 00:00:00 2021-03-26 00:00:00 (TEL) STLMLC STLMLC [id number] [facility] 2021-02-23 00:00:00 2021-02-23 00:00:00 (WEB) STLMLC STLMLC [id number] [facility] 2021-02-20 00:00:00 2021-02-20 00:00:00 (WEB) STLMLC STLMLC [id number] [facility] 2021-02-16 00:00:00 2021-02-16 00:00:00 OFFICE VISIT ESTAB PT LEVEL 4 STLMLC STLMLC [id number] [facility] 2021-02-15 00:00:00 2021-02-15 00:00:00 (WEB) STLMLC STLMLC [id number] [facility] 2021-01-12 00:00:00 2021-01-12 00:00:00 OFFICE VISIT EST PT LEVEL 3 STLMLC STLMLC [id number] [facility] 2020-12-23 00:00:00 2020-12-23 00:00:00 Telephone Kiki Hogan [facility] [id number] [id number] [facility] 2020-12-22 15:45:00 2020-12-22 15:45:00 Outpatient R [facility] [id number] [facility] 2020-12-22 15:23:12 2020-12-22 15:38:12 Laboratory Only Only, Ang Db Test [facility] Medical Office Building [id number] [id number] [id number] [facility] 2020-12-15 00:00:00 2020-12-15 00:00:00 OFFICE VISIT EST PT LEVEL 3 STLMLC STLMLC [id number] [facility] 2020-12-15 00:00:00 2020-12-15 00:00:00 (TEL) STLMLC STLMLC [id number] [facility] 2020-12-12 00:00:00 2020-12-12 00:00:00 Telephone Jud Solorio [facility] [id number] [id number] [id number] [id number] [facility] 2020-12-11 20:40:00 2020-12-11 20:55:00 Laboratory Only Only, Ang Db Test [facility] Medical Office [facility] [id number] [id number] [id number] [id number] [facility] 2020-12-11 20:45:00 2020-12-11 20:45:00 Outpatient MOE COKER [facility] [id number] [facility] 2020-12-11 00:00:00 2020-12-11 00:00:00 (TEL) STLMLC STLMLC [id number] [facility] 2020-10-09 00:00:00 2020-10-09 00:00:00 Outpatient STLMLC STLMLC [id number] [facility] 2020-10-02 00:00:00 2020-10-02 00:00:00 Outpatient STLMLC STLMLC [id number] [facility] 2020-09-29 00:00:00 2020-09-29 00:00:00 Outpatient STLMLC STLMLC [id number] [facility] 2020-09-01 00:00:00 2020-09-01 00:00:00 Outpatient STLMLC STLMLC [id number] [facility] 2020-06-24 16:25:00 2020-06-24 16:25:00 Outpatient [facility] [id number] [facility] 2020-06-12 00:00:00 2020-06-12 00:00:00 Outpatient STLMLC STLMLC [id number] [facility] 2020-06-07 10:00:00 2020-06-07 10:00:00 Outpatient GALEN BROWN STRAHIL [facility] [id number] [facility] 2020-06-03 16:35:00 2020-06-03 16:35:00 Outpatient [facility] [id number] [facility] 2020-05-25 00:00:00 2020-05-25 00:00:00 Outpatient STLMLC STLMLC [id number] [facility] 2020-05-10 00:00:00 2020-05-10 00:00:00 Outpatient STLMLC STLMLC [id number] [facility] 2020-05-10 00:00:00 2020-05-10 00:00:00 Outpatient STLMLC STLMLC [id number] [facility] 2020-04-04 00:00:00 2020-04-04 00:00:00 Outpatient STLMLC STLMLC [id number] [facility] 2020-03-27 00:00:00 2020-03-27 00:00:00 Outpatient STLMLC STLMLC [id number] [facility] 2020-03-12 18:00:00 2020-03-12 18:00:00 Outpatient DARLIN BUSBY [facility] [id number] [facility] 2020-02-16 13:30:00 2020-02-16 13:30:00 Outpatient R GALEN ALVARENGA STRAHIL [facility] [id number] [facility] 2019-12-31 00:00:00 2019-12-31 00:00:00 Outpatient STLMLC STLMLC [id number] [facility] 2019-12-28 00:00:00 2019-12-28 00:00:00 Outpatient STLMLC STLMLC [id number] [facility] 2019-12-28 00:00:00 2019-12-28 00:00:00 Outpatient STLMLC STLMLC [id number] [facility] 2019-07-14 10:30:00 2019-07-14 10:30:00 Outpatient R GALEN ALVARENGA STRAPRChloe [facility] [id number] [facility] 2019-07-14 09:16:54 2019-07-14 09:31:54 Telemedici ne Visit Galen Alvarenga [facility] [id number] [id number] [id number] [id number] 2018-11-09 00:00:00 2018-11-09 00:00:00 Orders Only Doctor Unassigned, Intercourse [facility] [id number] [id number] [id number] [id number] Results Test Description Test Time Test Comments Results Result Co mments Source CBC W/AUTO [id number] 00:00:00* Test Item Value Reference Range Interpretation Comme nts NUCLEATED RBCS (test code = 05443-7) 0.0 /100 WBC'S See_Comment [Automated messa ge] The system which generated this result transmitted reference range: 0.0 /100 WBC'S. The reference range was not used to interpret this result as normal/abnormal. ABSOLUTE EOSINOPHILS (test code = 19259-2) 0.09 K/UL See_Comment [Automated messa ge] The system which generated this result transmitted reference range: 0.00-0.50 K/UL. The reference range was not used to interpret this result as normal/abnormal. ABSOLUTE LYMPHOCYTES (test code = 60112-4) 1.57 K/UL See_Comment [Automated messa ge] The system which generated this result transmitted reference range: 1.00-4.00 K/UL. The reference range was not used to interpret this result as normal/abnormal. ABSOLUTE MONOCYTES (test code = 01932-4) 0.39 K/UL See_Comment [Automated messa ge] The system which generated this result transmitted reference range: 0.20-1.00 K/UL. The reference range was not used to interpret this result as normal/abnormal. ABSOLUTE NEUTROPHILS (test code = 55156-5) 3.78 K/UL See_Comment [Automated messa ge] The system which generated this result transmitted reference range: 1.50-7.50 K/UL. The reference range was not used to interpret this result as normal/abnormal. BASOPHILS (test code = 71510-3) 0.5 % EOSINOPHILS (test code = 11584-4) 1.5 % HEMATOCRIT (test code = 71609-9) 45.3 % See_Comment [Automated messa ge] The system which generated this result transmitted reference range: 40.0-51.0 %. The reference range was not used to interpret this result as normal/abnormal. HEMOGLOBIN (test code = 718-7) 15.0 G/DL See_Comment [Automated messa ge] The system which generated this result transmitted reference range: 13.5-17.0 G/DL. The reference range was not used to interpret this result as normal/abnormal. LYMPHOCYTES (test code = 55576-9) 26.7 % MCH (test code = 77639-6) 29.6 PG See_Comment [Automated messa ge] The system which generated this result transmitted reference range: 25.0-33.0 PG. The reference range was not used to interpret this result as normal/abnormal. MCHC (test code = 70850-4) 33.1 G/DL See_Comment [Automated messa ge] The system which generated this result transmitted reference range: 31.0-36.0 G/DL. The reference range was not used to interpret this result as normal/abnormal. MCV (test code = 96518-9) 89.5 fL See_Comment [Automated messa ge] The system which generated this result transmitted reference range: 80.0-99.0 fL. The reference range was not used to interpret this result as normal/abnormal. MONOCYTES (test code = 40326-7) 6.6 % NEUTROPHILS (test code = 53092-4) 64.5 % PLATELET COUNT (test code = 63071-4) 185 K/UL See_Comment [Automated messa ge] The system which generated this result transmitted reference range: 130-400 K/UL. The reference range was not used to interpret this result as normal/abnormal. RBC (test code = 34402-1) 5.06 M/UL See_Comment [Automated messa ge] The system which generated this result transmitted reference range: 4.50-6.10 M/UL. The reference range was not used to interpret this result as normal/abnormal. RDW (test code = 19051-9) 12.6 % See_Comment [Automated messa ge] The system which generated this result transmitted reference range: 11.5-15.0 %. The reference range was not used to interpret this result as normal/abnormal. WBC (test code = 16997-8) 5.9 K/UL See_Comment [Automated messa ge] The system which generated this result transmitted reference range: 3.5-11.0 K/UL. The reference range was not used to interpret this result as normal/abnormal. HEMOGLOBIN [id number] 00:00:00* Test Item Value Reference Range Interpretation [facility] A1c (test code = 4548-4) 6.2 % See_Comment H [Automated messa ge] The system which generated this result transmitted reference range: 4.2-5.6 %. The reference range was not used to interpret this result as normal/abnormal. TSH REFLEX TO FREE [id number] 00:00:00* Test Item Value Reference Range Interpretation Comme [facility] TSH REFLEX TO FREE T4 (test code = 42917-7) 2.090 UIU/ML See_Comment [Automated messa ge] The system which generated this result transmitted reference range: 0.400-4.100 UIU/ML. The reference range was not used to interpret this result as normal/abnormal. LIPID PANEL WITH REFLEX DIRECT [id number] 00:00:00* Test Item Value Reference Range Interpretation [facility] CALC LDL CHOL (test code = 25442-3) 69 MG/DL See_Comment [Automated messa ge] The system which generated this result transmitted reference range: <100 MG/DL. The reference range was not used to interpret this result as normal/abnormal. CHOLESTEROL (test code = 2093-3) 137 MG/DL See_Comment [Automated [employer]] The system which generated this result transmitted reference range: <200 MG/DL. The reference range was not used to interpret this result as normal/abnormal. HDL CHOLESTEROL (test code = 2085-9) 56 MG/DL See_Comment [Automated [employer]] The system which generated this result transmitted reference range: >39 MG/DL. The reference range was not used to interpret this result as normal/abnormal. RISK RATIO LDL/HDL (test code = 81333-0) 1.23 RATIO See_Comment [Automated message] The system which generated this result transmitted reference range: <3.55 RATIO. The reference range was not used to interpret this result as normal/abnormal. TRIGLYCERIDES (test code = 2571-8) 43 MG/DL See_Comment [Automated messa ge] The system which generated this result transmitted reference range: <150 MG/DL. The reference range was not used to interpret this result as normal/abnormal. ALBUMIN/CREATININE RATIO, RANDOM [id number] 00:00:00* Test Item Value Reference Range Interpretation Comme nts ALBUMIN, URINE, RANDOM (test code = 30236-4) 1.7 MG/DL NOT ESTAB MG/DL CALC ALBUMIN/CREAT, RND (test code = 07528-3) 11 MG/G See_Comment [Automated messa ge] The system which generated this result transmitted reference range: <30 MG/G. The reference range was not used to interpret this result as normal/abnormal. CREATININE, URINE, CONC. (test code = 2161-8) 149.7 MG/DL NOT ESTAB MG/DL COMPREHENSIVE METABOLIC [id number] 00:00:00* Test Item Value Reference Range Interpretation Comme nts ALBUMIN (test code = 1751-7) 4.5 G/DL See_Comment [Automated messa ge] The system which generated this result transmitted reference range: 3.5-5.2 G/DL. The reference range was not used to interpret this result as normal/abnormal. ALKALINE PHOSPHATASE (test code = 6768-6) 79 U/L See_Comment [Automated message] The system which generated this result transmitted reference range: 40-119 U/L. The reference range was not used to interpret this result as normal/abnormal. BILIRUBIN, TOTAL (test code = 1975-2) 0.5 MG/DL See_Comment [Automated message] The system which generated this result transmitted reference range: <=1.2 MG/DL. The reference range was not used to interpret this result as normal/abnormal. BUN (test code = 3094-0) 17 MG/DL See_Comment [Automated messa ge] The system which generated this result transmitted reference range: 6-20 MG/DL. The reference range was not used to interpret this result as normal/abnormal. CALCIUM (test code = 10497-6) 9.3 MG/DL See_Comment [Automated messa ge] The system which generated this result transmitted reference range: 8.5-10.5 MG/DL. The reference range was not used to interpret this result as normal/abnormal. CALC A/G RATIO (test code = 1759-0) 2.1 RATIO See_Comment [Automated messa ge] The system which generated this result transmitted reference range: 1.0-2.6 RATIO. The reference range was not used to interpret this result as normal/abnormal. CALC BUN/CREAT (test code = 3097-3) 21 RATIO See_Comment [Automated messa ge] The system which generated this result transmitted reference range: 6-28 RATIO. The reference range was not used to interpret this result as normal/abnormal. CALC GLOBULIN (test code = 33221-0) 2.1 G/DL See_Comment [Automated messa ge] The system which generated this result transmitted reference range: 1.9-3.7 G/DL. The reference range was not used to interpret this result as normal/abnormal. CARBON DIOXIDE (test code = 1963-8) 30 MEQ/L See_Comment [Automated messa ge] The system which generated this result transmitted reference range: 19-31 MEQ/L. The reference range was not used to interpret this result as normal/abnormal. CHLORIDE (test code = 2075-0) 106 MEQ/L See_Comment [Automated messa ge] The system which generated this result transmitted reference range: 95-107 MEQ/L. The reference range was not used to interpret this result as normal/abnormal. CREATININE (test code = 2160-0) 0.80 MG/DL See_Comment [Automated messa ge] The system which generated this result transmitted reference range: 0.80-1.40 MG/DL. The reference range was not used to interpret this result as normal/abnormal. eGFR (2020 CKD-EPI) (test code = 21614-4) 114 ML/MIN/1.73 See_Comment [Automated message] The system which generated this result transmitted reference range: >60 ML/MIN/1.73. The reference range was not used to interpret this result as normal/abnormal. GLUCOSE (test code = 1558-6) 143 MG/DL See_Comment H [Automated messa ge] The system which generated this result transmitted reference range: 70-99 MG/DL. The reference range was not used to interpret this result as normal/abnormal. POTASSIUM (test code = 2823-3) 4.6 MEQ/L See_Comment [Automated messa ge] The system which generated this result transmitted reference range: 3.5-5.4 MEQ/L. The reference range was not used to interpret this result as normal/abnormal. PROTEIN, TOTAL (test code = 2885-2) 6.6 G/DL See_Comment [Automated messa ge] The system which generated this result transmitted reference range: 6.1-8.3 G/DL. The reference range was not used to interpret this result as normal/abnormal. AST (test code = 1920-8) 19 U/L See_Comment [Automated messa ge] The system which generated this result transmitted reference range: 9-50 U/L. The reference range was not used to interpret this result as normal/abnormal. ALT (test code = 1742-6) 22 U/L See_Comment [Automated messa ge] The system which generated this result transmitted reference range: 5-50 U/L. The reference range was not used to interpret this result as normal/abnormal. SODIUM (test code = 2951-2) 144 MEQ/L See_Comment [Automated messa ge] The system which generated this result transmitted reference range: 133-146 MEQ/L. The reference range was not used to interpret this result as normal/abnormal. [id number] 13:18:00* Test Item Value Reference Range Interpretation Comme nts SURGICAL (test code = SR) RUN DATE: 07/25/21 [facility] - LAB PAGE 1 RUN TIME: 1319 Specimen Inquiry RUN USER: INTERFACE DAVIAN ENT: CATY COHN III LOC: P.N POD B U #: [id number] AGE/SX: 40/M ROOM: [facility] RE07/19/21REG DR: Tyler Borjas MD : 81 BED: 1 DIS: 07/20/21 STATUS: DIS IN TLOC: SPEC #: [id number] RECD: 07/19/21 STATUS: BRUNO REArnold #: [id number] ALINA: 07/19/[address] [facility] [address]: Tyler Borjas MD ENTERED: 07/19/21 SP TYPE: SURGICAL OTHR DR: Olivia Provider ORDERED: 65121, 91961/4, ANATOMIC SPEC HISTOLOGY: TISSUE ID BLK PCS LILIBETH LEV / PROCEDURE DISPOSITION ____ ___ ___ ___ ___ LIVER, NOS A 2 2 TISSUES: A. LIVER, NOS - Liver Bx FINAL DIAGNOSIS LIVER, WEDGE BIOPSY:- Severe steatosis with evidence of steatohepatitis. - Portal and perivenular fibrosis. Comment: The biopsy demonstrates hepatic parenchyma grade 3 of 3 steatosis (70-80%) withscattered ballooned hepatocytes. Mild portal mononuclear inflammation without interfaceactivity and moderate lobular inflammation (2-4 foci per 20x field) are also noted. NASscore = 7 of 8. Plasma cell aggregates or granulomas are not identified. A special stainfor iron is negative. A PAS with diastase stain is negative for cytoplasmic inclusions, areticulin stain does not demonstrate abnormal thickening of the cell plates, and atrichrome stain demonstrates portal and perivenular fibrosis (stage 2 of 4). Nonalcoholic Steatohepatitis [employer] Histological Scoring System/NAFLDActivity Score (JANE). GROSS DESCRIPTION Received in formalin, labeled with the patient's name, and designated "liver biopsy". Itconsists of delgado-pink soft wedge shaped fragment of liver that measures 2.1 x 1.2 x 1.0 cm. The specimen is trisected and submitted entirely and sequentially across cassettes A1 toA2. SEVERIANO/michela Technical component performed at [facility] [facility], [facility], [address] Unless gross only, the diagnosis is based upon microscopic examination.Immunohistochemistry : This test was developed and its performancecharacteristics determined by this laboratory. It has not been approved nordoes it need approval by the [place] FDA. Appropriate positive and negative controlsare reviewed and judged to be acceptable. This laboratory is certified under CONTINUED ON NEXT PAGE RUN DATE: 07/25/21 [facility] - LAB PAGE 2 RUN TIME: 1319 Specimen Inquiry RUN USER: INTERFACE SPEC #: [id number] PATIENT: AURELIANOCATY III #[id number] (Continued) ------- GROSS DESCRIPTION (Continued) the Clinical Laboratory Improvement Amendments (CLIA-88) as qualified toperform high complexity clinical laboratory testing. MICROSCOPIC DESCRIPTION Performed. CLINICAL INFORMATION Morbid Obesity --- Signed SIGNATURE ON FILE TristonPavan M 07/25/21 1318 END OF REPORT [id number] 06:18:00* Test Item Value Reference Range Interpretation Comme nts GLUBED (test code = GLUBED) 120 MG/DL 70-105 H [id number] 00:30:00* Test Item Value Reference Range Interpretation Comme nts GLUBED (test code = GLUBED) 116 MG/DL 70-105 H [id number] 17:26:00* Test Item Value Reference Range Interpretation Comme nts GLUBED (test code = GLUBED) 133 MG/DL 70-105 H [id number] 11:42:00* Test Item Value Reference Range Interpretation Comme nts GLUBED (test code = GLUBED) 178 MG/DL 70-105 H [id number] 10:06:00* Test Item Value Reference Range Interpretation Comme nts GLUBED (test code = GLUBED) 192 MG/DL 70-105 H BASIC METABOLIC [id number] 06:44:00* Test Item Value Reference Range Interpretation Comme nts SODIUM (test code = NA) 141 mmol/L 136-145 N Please note: New Reference Range Apr 2020 POTASSIUM (test code = K) 4.3 mmol/L 3.5-5.1 N CHLORIDE (test code = CL) 106 mmol/L 98-107 N Please note: New Reference Range Apr 2020 CARBON DIOXIDE (test code = CO2) 22 mmol/L 20-31 N Please note: N ew Reference Range Apr 2020 GLUCOSE (test code = GLU) 235 mg/dL 74-106 H Please note: New Reference Range Apr 2020 BLOOD UREA NITROGEN (test code = BUN) 17 mg/dL 9-23 N Please note: New Reference Range Apr 2020 GLOMERULAR FILTRATION RATE (test code = GFR) >=60 max estimate mL/min >60 Units are mL/min/1.73m2 The estimated glomerular filtration rate is computed usingpatient race, age (>18), sex, and serum creatinine. If anyof the needed data elements are missing the Laboratory cannot compute an estimation of the glomerular filtration rate. CREATININE (test code = CREAT) 0.70 mg/dL 0.70-1.30 N Please note: New Reference Range Apr 2020 CALCIUM (test code = CA) 8.4 mg/dL 8.7-10.4 L Please note: New Reference Range Apr 2020 CBC W/AUTO [id number] 06:33:00* Test Item Value Reference Range Interpretation Comme nts WHITE BLOOD CELL (test code = WBC) 6.8 x10 3/uL 4.8-10.8 N RED BLOOD CELL (test code = RBC) 5.39 x10 6/uL 4.70-6.10 N HEMOGLOBIN (test code = HGB) 15.6 g/dL 14.0-18.0 N HEMATOCRIT (test code = HCT) 46.4 % 42.0-52.0 N MEAN CELL VOLUME (test code = MCV) 86.1 fL 80.0-94.0 N MEAN CELL HGB (test code = MCH) 28.9 pg 27-31 N MEAN CELL HGB CONCENTRATION (test code = MCHC) 33.6 G/DL 33-36.5 N RED CELL DISTRIBUTION WIDTH (test code = RDW) 12.8 % 12.9-16.9 L PLATELET COUNT (test code = PLT) 174 x10 3/uL 150-440 N MEAN PLATELET VOLUME (test c ode = MPV) 11.4 fL 8.9-12.4 N NEUTROPHIL % (test code = NT%) 64.0 % 42.2-75.2 N LYMPHOCYTE % (test code = LY%) 24.2 % 20.5-51.1 N MONOCYTE % (test code = MO%) 8.9 % 1.7-9.3 N EOSINOPHIL % (test code = EO%) 2.1 % 0.0-7.0 N BASOPHIL % (test code = BA%) 0.4 % 0-2.5 N NEUTROPHIL # (test code = NT#) 4.33 x10 3/uL 1.80-7.70 N LYMPHOCYTE # (test code = LY#) 1.64 x10 3/uL 1.00-4.80 N MONOCYTE # (test code = MO#) 0.60 x10 3/uL 0.00-0.80 N EOSINOPHIL # (test code = EO#) 0.14 x10 3/uL 0.00-0.45 N BASOPHIL # (test code = BA#) 0.03 x10 3/uL 0.0-0.20 N [id number] 06:23:00* Test Item Value Reference Range Interpretation Comme nts GLUBED (test code = GLUBED) 234 MG/DL 70-105 H HEMOGLOBIN [id number] 00:00:00* Test Item Value Reference Range Interpretation Comme nts A1C (test code = 4548-4) 9.1 Notes Date/Time Note Provider Source 2021-07-20 10:21:00 [id number] [id number]-85-67W76:21:00 [facility] ([facility]) Med Order Sheet REPORT #: [id number] REPORT STATUS: Signed DATE: 07/20/21 TIME: 1021 PATIENT: CATY COHN III UNIT #: [id number] #: [id number] ROOM #: P.0581 BED: 1 : 81 AGE: 40 SEX: M ATTEND: Tyler Borjas MD ADM AUTHOR: Tyler Borjas MD ATTENTION EDITS and/or ADDENDA must be made in Patient Keeper for this note. Edits and ammendments created in [facility] are not visible in Patient Keeper or the legal medical record (HPF). Discharge Medication Reconciliation DISCHARGE MEDICATION LISTcandesartan tablet Dose: 32 MG PO DAILY STOPPED HOME MEDICATIONSDc'd: Adderall tablet (dextroamphetamine-amphetamine) 20 MG PO BIDDc'd: Mobictablet (meloxicam) 15 MG PO DAILYDc'd: SYNJARDY (12.5MG/1000MG PO BID)Dc'd:TRULICITY (1.5 MG/0.5 ML SQ WEEKLY) STOPPED HOSPITAL MEDICATIONSDc'd: Dextrose 50% 50 ml Syringe (D50W 50 ml Syringe) 25ML IV ASDIR PRNhypoglycemiaDc'd: Enalaprilat Inj (Vasotec Inj) 1.25MG IV Q6HDc'd: Savoxnhygg18 mg/0.3 ml Inj (Lovenox 30 mg/0.3 ml Inj) 30MG SubQ DAILYDc'd: Glucagon Inj(Glucagon Inj) 1MG IM ASDIR PRN hypoglycemia if no iv/enteralDc'd: Insulin(Lispro) Inj (HumaLOG Inj) 0 UNITS SubQ Q6HRDc'd: KCL 20mEq + NS 1000ML (NS +KCL 20mEq 1000ML) 20MEQ 125 MLS/HR IV Dc'd: Ketorolac Inj (Toradol Inj) 30MGIV Q6HRDc'd: morphine Inj 2MG IV Q2H PRN pain scale 1-3Dc'd: morphine Inj5MG IV Q2H PRN pain scale 4-6Dc'd: Ondansetron Inj (Zofran Inj) 4MG IV Q6HPRN nausea and vomitingDc'd: Promethazine Inj (Phenergan Inj) 25MG IM Q6H PRN nausea and vomiting at 1021ATTENTION EDITS and/or ADDENDA must be made in Patient Keeper for this note. Edits and ammendments created in [email or web address] are not visible in Patient Keeper or the legal medical record (HPF). RPT #: [id number] OF REPORTCLClinical [id number]:21:00P.ZC-[id number] ailable for patient [id number]-70Y35:21:57 [facility] 2021-07-20 10:17:00 [id number] [id number]09-32-86Q00:17:00 [facility] ([facility]) General Surg. D/C Summary REPORT #: [id number] REPORT STATUS: Signed DATE: 07/20/21 TIME: 1017 PATIENT: CATY COHN III UNIT #: [id number] #: [id number] ROOM #: P.0581 BED: 1 : 81 AGE: 40 SEX: M ATTEND: Tyler Borjas MD ADM AUTHOR: Tylre Borjas MD ATTENTION EDITS and/or ADDENDA must be made in Patient Keeper for this note. Edits and ammendments created in [email or web address] are not visible in Patient Keeper or the legal medical record (HPF). -- HOSPITAL COURSE -- HOSPITAL COURSE:POD 1 Discharge Note Discharge date:07/20/2021 Procedure(s): R/LSG, LLL Bx Current status: Patient is awake and alert. Ambulating in the hallway withassistance. Tolerating small volumes of bariatric clear liquids. Minimalabdominal pain. Denies persistent vomiting, fevers, chills, dizziness orshortness of breath. Mild tachycardia which patient attributes to aderall use. Physical examination:general - non-ill, non-toxic, comfortable, good colorVS normalhead neck - pink [place], moist mucus membraneschest - CTA, no increased work of breathingcvs - nsr, no murmurabd - soft, non-distended, minimal incisional pain, NO peritoneal signswounds - dressings dry and intact UOP: 2300 Assessment: Expected post-operative course Plan: Discharge home today - instructions given verbally to the patientCrush al essential medications with waterBariatric clear liquid dietAmbulate 3 times a dayCall IMMEDIATELY for worsening abdominal pain, chest pain, shortness of breath,persistent vomiting, left shoulder pain, vomiting blood, passing blood perrectum, fever, dizziness, inability to drink liquids, or any other concerningnew symptom -- DISCHARGE MEDICATIONS -- ALLERGIES:No Known Allergies (UNKNOWN - Allergy) -- DISCHARGE INSTRUCTIONS -- ADDTIONAL DISCHARGE INSTRUCTIONS:Emergency Instructions: The patient was instructed to present to the nearestEmergency Department or call 911 should their symptoms return or worsen.; -- OBJECTIVE -- VITALS (07/19 10:17 - 07/20 10:17):Temperature C: 36.8 (36.6 - 37.3)Temperature source: OralPulse Rate 102 (88 - 116)Respiratory rate: 18 (17 - 20)BP: 135/92 (135/77 - 168/106) I/Os (07/19 07:00 - 07/20 07:00):Net 1,870.00Intake 3,320.00Output 1,450 -- DATA -- LABS GLU BED (07/20/21 06:16)GLUBED 120 H GLU BED (07/19/21 23:34)GLUBED 116 H GLU BED (07/19/21 17:17)GLUBED 133 H GLU BED (07/19/21 11:07)GLUBED 178 H Signed in PatientKeeper by Tyler Borjas MD on 07/20/21 at 10:19 at 1019ATTENTION EDITS and/or ADDENDA must be made in Patient Keeper for this note. Edits and ammendments created in [facility] are not visible in Patient Keeper or the legal medical record (HPF). [facility] #: [id number] OF REPORTDSDischarge nukzfdd1826-37-68U39:17:00P.LT-[id number] VAvailable for patient bbzfLJIXODOKGEVVVX4612-78-14E88:20:08 [facility] 2021-07-19 09:13:00 [id number]Vv1 F9q7ujlT41gp2GBMhWL3OWHhgfi3680-60-93G95:13:00 [facility] ([facility]) Operative Report REPORT #: [id number] REPORT STATUS: Signed DATE: 07/19/21 TIME: 912 PATIENT: CATY COHN III UNIT #: [id number] #: [id number] [facility] B[facility]: 04 : 81 AGE: 40 SEX: M ATTEND: Tyler Borjas MD ADM AUTHOR: Tyler Borjas MD ATTENTION EDITS and/or ADDENDA must be made in Patient Keeper for this note. Edits and ammendments created in [email or web address] are not visible in Patient Keeper or the legal medical record (HPF). -- OPERATION -- SURGERY START DATE/TIME:2021-07-19 09:13 PRE-OPERATIVE DIAGNOSIS:morbid obesity DM HTN PRETTY family history of vasc disease joint pain POST-OPERATIVE DIAGNOSIS:hepatomegaly hepatic steatosis same NAME OF PROCEDURE:Robotic/Laparoscopic Sleeve Gastrectomy with Left Lobe Liver Wedge Biopsy SURGEON:Tyler Borjas MD BAND SAW OPERATOR CAKE CUTTING(S):Yoandy GARAY ANESTHESIA:General ESTIMATED BLOOD LOSS:10 ml's FINDINGS:hepatic steatosis hepatomegaly no obvious hiatal hernia SPECIMEN(S) REMOVED AND/OR ALTERED:left lobe liver wedge lateral stomach COMPLICATION(S):None; -- DESCRIPTION -- DESCRIPTION OF TECHNIQUE/PROCEDURE:Date:07/19/2021athology specimen: left lobe liver wedge biopsyPre-op DVT prophylaxis: SCDs and lovenoxPre-op Antibiotics: Cefazolin 2gm IVComplications: none Procedure:The patient was prepped and draped in the supine position with the abdomenexposed. An area in the LUQ adjacent to the umbilicus was infiltrated with amixture of exparel and 0.25% bupivicaine. A small incision was made, and ablunt trochar with a camera inserted was passed into the peritoneal space underdirect vision. The abdomen was insufflated with CO2, and there were nohemodymamic or oxygenation changes. General inspection of the abdomen wasfavorable to continue laparoscopically. The left lobe of the liver was noted sandee enlarged with the appearance of fatty infiltration. Areas in the lateral andmedial right abdomen, and the lateral left abdomen were infiltrated with thesame local anesthetic (subdermal and pre-peritoneal areas). An 8 mm trochar wasplaced in the right lateral position, followed by a 12 mm trochar medial tothis. An 8 mm trochar was placed in the left lateral abdomen, and the originaltrochar was replaced with an 8 mm trochar. The [employer] Crow[employer] Xi surgical robot wasbrought over the field and docked. The camera was targeted. The surgeon brokescrub and went to the console.The left lobe of the liver was elevated and heldin place with a self-retaining retractor (trio retractor). A dissection wasstarted along the distal greater curvature, the omentum from thestomach, until the lesser sac was exposed. The dissection was continue distallyto within a few centimeters of the pylorus. The dissection was then carried upalong the greater curve until the left lisandro was exposed. Some posteriorattachments were also divided, completely mobilizing the lateral stomach. A 38fr bougie was then placed into the stomach, near the pylorus, by theAnesthetist. It was drawn back slightly against the lesser curve. A 60 mmstapler was exchanged. The first staple firing was a green load fired from thedistal most point of the greater curve dissection towards the incisura,allowing for the presence of the bougie. Subsequent staple loads (blue) wereapplied working superiorly, until the stomach was transected near the angle ofHIS. The remnant stomach was moved to the left lateral abdomen. Inspection ofthe staple line showed the jacinda to be well formed, oriented, with nosignificant gapping or bleeding. The bougie was removed and replaced by an OGtube. Sixty ccs of methylene dyed blue NS was instilled into the distal sleevewith good distention. Careful inspection did not reveal any leak. The tube wassuctioned and removed. An area along the inferior edge of the left lobe of theliver was selected and a wedge of tissue was excised using the energy device.Bleeding was minimal. The raw liver bed was cauterized with scissors. The trioretractor was removed from the peritoneal space. The surgeon re-scrubbed.. The12 mm trochar site was widened with a large clamp, and the remnant stomach wasremoved from the abdomen. The 12 mm trochar site were then closed at the levelof the fascia with a suture passer and 0 vicryl suture. All sites were thenclosed at the skin with a running 4-0 monocryl suture. The wounds were dressedwith steristrips and dry gauze. The patient was then taken to the recovery roomin stable condition. Signed in PatientKeeper by Tyler Borjas MD on 07/19/21 at 09:15 at 0915ATTENTION EDITS and/or ADDENDA must be made in Patient Keeper for this note. Edits and ammendments created in [facility] are not visible in Patient Keeper or the legal medical record (HPF). [facility] #: [id number] OF REPORTOPOperative qvmyhe0241-35-74V83:13:00P.[id number] Available for patient nfjcCMPKGPPMFLFEZF9853-11-39S73:16:25 [facility] 2021-07-19 06:35:00 [id number] D8GsAEfH8RyIUobvKidaF2VwpZB1678-27-41B75:35:81298 2-0047 [facility] [address] [place] [id number] NAME: CATY COHN III ADMIT DATE: 07/19/21ACCOUNT NO: [id number] ROOM NO: P.0581 AGE: 40 REPORT TYPE: eELECTROCARDIOGRAM SEX: M ADMITTING PHYSICIAN: Tyler Borjas MD ATTENDING PHYSICIAN: Tyler Borjas MD Order:[id number] Reason : PREOP Test Date/Time Stamp:FriJul 19 2021 06:35:55Blood Pressure : / mmHGVent. Rate : 072 BPM Atrial Rate : 072 BPM P-R Int : 162 ms QRS Dur : 086 ms QT Int : 378 ms P-R-T Axes : 033 075 038 degrees QTc Int : 413 ms Normal sinus rhythmNormal ECGNo previous ECGs availableConfirmed by JACLYN SHIPLEY, LILIA Mathias ([id number]) on 07/26/2021 8:38:50 AM Referred By: Tyler Borjas Confirmed by:LILIA HILARIO MD at 0838 PATIENT NAME: CATY COHN III .[id number] AVAvailable for patient deqjKWEBXPWXOIWYVN6518-07-39N51:39:17 [facility]
[2023-07-02] MEDS ORDERED: IBUPROFEN 400 MG TAB ONE (22:20)
[2023-07-02] MEDS ORDERED: LIDOCAINE 1% MPF 5 ML VIAL ONE (22:20)
[2023-07-02] MEDS ORDERED: TDAP (DIPHTH,PERTUSS(ACELL),TET VAC) 0.5 ML VIAL IMVAC ONE (22:20)
--- NOTE | 2023-07-02 22:27 | RAD REPORT ---
EXAM DESCRIPTION: RAD - Hand Left 3 View - 07/02/2023 10:21 pm CLINICAL HISTORY: PAIN COMPARISON: <Comparisons> FINDINGS: Mild soft tissue gas is seen in the second and third web spaces. No fracture, dislocation or radiopaque foreign body is seen.
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
[2023-07-03 09:39] VITALS: BP 123/84; TEMP 97.3; O2SAT 99
== END 2023-07-02 23:03 | disposition home or self-care (01) ==
LOC: ER 21:59
DX: S61.432A Puncture wound without foreign body of left hand, initial encounter (principal)
CPT/HCPCS: 73130; J2001